=== PATIENT | male | born 1990 | race Hispanic/Latino ===

== ENCOUNTER 2018-08-28 10:40 | Emergency (ER) | payer SELFPAY ==
[2018-08-28] MEDS ORDERED: Lidocaine 1% (PF) 30 ML VIAL ONE (10:58)
[2018-08-28] MEDS ORDERED: Lidocaine 1% PF 5 ML VIAL ONE ×2 (11:00→11:15)
[2018-08-28] MEDS ORDERED: Lidocaine 2% 10 ML INJ ONE (11:00)
[2018-08-28] MEDS ORDERED: Adacel (T-DAP) 0.5 ML SYRINGE ONE (11:10)
--- NOTE | 2018-08-28 11:55 | RAD ---
THREE VIEWS OF THE RIGHT THUMB: HISTORY: Cut finger at work this morning with pain. FINDINGS: Three views of the right thumb show no evidence of acute fracture or dislocation. No degenerative ch anges are seen. No radiopaque foreign body is seen. IMPRESSION: Unremarkable exam. POS: GRAY
== END 2018-08-28 11:50 | disposition home or self-care (01) ==
LOC: ERS 10:40
DX: S61.011A Laceration without foreign body of right thumb without damage to nail, initial encounter (principal); W31.9XXA Contact with unspecified machinery, initial encounter
CPT/HCPCS: 90471; 90715; J2001

== ENCOUNTER 2018-09-08 17:03 | Emergency (ER) | payer SELFPAY | END 2018-09-08 18:52 | disposition home or self-care (01) | LOC: ERS 17:03 | DX: S61.011D Laceration without foreign body of right thumb without damage to nail, subsequent encounter (principal) ==